=== PATIENT | female | born 2000 | race Caucasian/White ===

== ENCOUNTER 2020-03-09 16:46 | Outpatient (REF) | payer OTHER, SELFPAY ==
[2020-03-12 13:35] LABS: Chlamydia Result Negative (Negative); GC Result Negative (Negative)
== END 2020-03-09 17:06 ==
LOC: NCHCN 16:46
PROVIDERS: PCP Family Medicine; Visit Provider Registered Nurse
DX: Z11.3 Encounter for screening for infections with a predominantly sexual mode of transmission (principal)
CPT/HCPCS: 87491; 87591

== ENCOUNTER 2022-01-15 12:07 | Outpatient (REF) | payer OTHER, SELFPAY ==
--- NOTE | 2022-01-15 11:15 | PAPFT_PTH ---
PATIENT: Yasmine Palomares [facility] U#:[id number] AGE/SX: 21/F ROOM: RE01/15/[address]: Ninfa Camilo : 2000 BED: DIS: 01/15/2022 SPEC #: [id number] RECD: 01/15/22 17:58 STATUS: JAIDA DEVRIES #: [id number] MARIA L: 01/15/22 11:[address]: Ninfa Camilo DEPT: [facility] Cytology RECD BY: Amada Chu Tissues: 1 - CX/ENDOCX FOR PAP SMEARS Procedures: PAP THIN PREP/[facility] Screening Comments: [id number] (CHLAMYDIA/GC)
[2022-01-16 09:51] LABS: Hepatitis C Ab w Rflx HCV PCR Negative (Negative)
[2022-01-16 10:10] LABS: HIV-1/2 Ag & Ab Screen Negative (Negative)
[2022-01-16 10:11] LABS: Syphilis Serology (RPR) Negative (Negative)
[2022-01-16 14:46] LABS: Chlamydia Result Negative (Negative); GC Result Negative (Negative)
== END 2022-01-15 12:08 | disposition home or self-care (01) ==
LOC: NCHCN 12:07
PROVIDERS: PCP Family Medicine; Visit Provider Family Medicine
DX: Z11.3 Encounter for screening for infections with a predominantly sexual mode of transmission (principal); Z11.4 Encounter for screening for human immunodeficiency virus [HIV]; Z11.59 Encounter for screening for other viral diseases; Z12.4 Encounter for screening for malignant neoplasm of cervix; R87.610 Atypical squamous cells of undetermined significance on cytologic smear of cervix (ASC-US); Z00.00 Encounter for general adult medical examination without abnormal findings
CPT/HCPCS: 86803; 87389; 87491; 87591; 88142; 86592

== ENCOUNTER 2023-03-13 11:59 | Outpatient (REF) | payer OTHER, SELFPAY ==
--- NOTE | 2023-03-13 11:00 | PAPFT_PTH ---
PATIENT: Yasmine Palomares LOC: [facility] U#:[id number] AGE/SX: 23/F ROOM: RE03/13/[address]: Ninfa Camilo : 2000 BED: DIS: 03/13/2023 SPEC #: [id number] RECD: 03/16/23 12:37 STATUS: JAIDA DEVRIES #: [id number] MARIA L: 03/13/23 11:[address]: Ninfa Camilo DEPT: [facility] Cytology RECD BY: Amada Chu Tissues: 1 - CX/ENDOCX FOR PAP SMEARS Procedures: PAP THIN PREP/[facility] Screening Comments: [id number] (CHLAMYDIA/GC)
[2023-03-17 14:53] LABS: Chlamydia Result Negative (Negative); GC Result Negative (Negative)
== END 2023-03-13 12:00 | disposition home or self-care (01) ==
LOC: NCHCN 11:59
PROVIDERS: PCP Family Medicine; Visit Provider Family Medicine
DX: Z11.3 Encounter for screening for infections with a predominantly sexual mode of transmission (principal); Z12.4 Encounter for screening for malignant neoplasm of cervix
CPT/HCPCS: 87491; 87591; 88142